=== PATIENT | female | born 1970 ===

== ENCOUNTER 2016-12-17 20:02 | Emergency (ER) | payer OTHER ==
--- NOTE | 2016-12-17 21:12 | ED ORDER SUMMARY ---
..... Patient: EILEEN LYONS OrderSheet [facility] VisitID: [id number] [address] [place] [place] [address] 46y, F Registration Date/Time: 12/17/2016 ORDER SHEET Weight: 89.8 kg (stated) Allergies: Latex, Sulfa Antibiotics GENERAL ORDERS: UA-Culture if indicated Urgent (20:25 12/17/2016 HSoule per protocol) (20:27 AMcQuoid ER Tech1) MEDICATION ORDERS: IV FLUIDS: ORDER SHEET NOTES: [Electronically signed by Christy Petty (22:28 12/17/2016)] [Electronically signed by Geno Urias PA-C (23:55 12/17/2016)] [Electronically locked/signed by Christy Petty (22:28 12/17/2016)]
--- NOTE | 2016-12-17 21:12 | ED CLINICAL REPORT ---
Clinical Report - Physicians/Mid Levels [facility] [address] [place] [address] 12/17/2016 20:03 Patient: EILEEN LYONS Time Seen: 20:30; initial patient contact. Arrived- By private vehicle. Historian- patient. HISTORY OF PRESENT ILLNESS Chief Complaint: DYSURIA. frequent urination. This started several days; pt with a history of diabetes prior to her lap banding, has increased urination and had a recent yeast infection as well, thinks she has a uti. had nausea and vomiting several times this week, has pain over her area of her lap banding. stool is normal. she admits to gaining 35lbs this past few years since her banding. The patient has had mild, intermittent abdominal pain. The pain is described as located in the upper abdomen. She has had mild, intermittent right-sided and left-sided flank pain. No pelvic pain, vaginal itching, genital lesions or pain with urination. The patient has had urinary frequency. She has had urgency of urination. Not sexually active. Similar symptoms previously: Many times. Recent medical care: Not recently seen/assessed. REVIEW OF SYSTEMS The patient has had mild nausea. She has had vomiting. All systems otherwise negative, except as recorded above. PAST HISTORY See nurses notes. Problems: Flank Pain. Prior Injury, Same Area. Vaginitis. Tension-Type Headache. Atypical Chest Pain. Lifestyle / Substance Problems. Hypothyroidism. Diabetes Mellitus. Medications: LORazepam Oral 0.5 mg, PRN. Naproxen Oral. Tramadol HCL Oral 50 mg, 2 tabs, 3x a day, shoulder px. Allergies: Latex. Sulfa Antibiotics. SOCIAL HISTORY No alcohol use or drug use. FAMILY HISTORY Negative. ADDITIONAL NOTES The nursing notes have been reviewed with agreement regarding the chief complaint, HPI, ROS, PMH and patient medications and allergies. PHYSICAL EXAM Vital Signs: 12/17/2016 20:10 BP: 137/85. HR: 76. RR: 18. O2 saturation: 100%. Temp: 97.9 F. Pain level now: 310. Have been reviewed. Appearance: Alert. Oriented X3. No acute distress. HEENT: Normal external inspection. ENT: Pharynx normal. Neck: Neck supple. CVS: Heart sounds normal. Respiratory: No respiratory distress. Breath sounds normal. Chest nontender. Abdomen: Soft and nontender. Bowel sounds normal. No organomegaly. No mass. (mild tenderness over her port from her lap banding). Back: No CVA tenderness. LABS, X-RAYS, AND EKG Laboratory Tests: UA-Culture if indicated: (ISABELA: 12/17/2016 20:15) ( MsgRcvd 12/17/2016 20:46) Final results Test Result Flag Units (Reference) URINE COLOR YELLOW URINE APPEARANCE CLEAR URINE GLUCOSE NEGATIVE (NEGATIVE) URINE BILIRUBIN NEGATIVE (NEGATIVE) URINE KETONE NEGATIVE (NEGATIVE) URINE SPECIFIC GRAVITY 1.025 (1.010-1.030) URINE PH 6.0 (5.0-8.0) URINE PROTEIN NEGATIVE (NEGATIVE) URINE UROBILINOGEN 0.2 EU/dL (0.2-1.0) URINE NITRITE NEGATIVE (NEGATIVE) URINE BLOOD TRACE-INTACT (NEGATIVE) URINE LEUK ESTERASE NEGATIVE (NEGATIVE) URINE RBC 0-1 rbc/hpf (0-1) URINE WBC 0-1 wbc/hpf (0-1) URINE EPITHELIAL CELLS 3-5 EPI/hpf (0-5) URINE BACTERIA FEW (1+) (NONE SEEN) URINE COMMENT CULT NOT INDICATED URINE CULTURES ARE SET-UP BASED ON THE FOLLOWING CRITERIA:POSITIVE NITRITEPOSITIVE LEUKOCYTE ESTERASEGREATER THAN 10 WHITE BLOOD CELLSMODERATE (2+) OR GREATER BACTERIA . PROGRESS AND PROCEDURES Course of Care: discussed further, she has been eating breads and has a history of lap banding, and previously this did cause her nausea and vomiting in the past, she states she is now also experiencing hot flashes and night sweats and otherwise feels fine, no sense of illness otherwise. she states she used to be a diabetic and that's why she had her lap banding and is on no medication other than naprosyn. Patient is stable. Symptoms better. Patient/family counseled. CLINICAL IMPRESSION Epigastric abdominal pain of undetermined cause. (you need to see your bariatric surgeon regarding your lap band). Acute cystitis with hematuria. menopausal sx likely with hot flashes and night sweats. INSTRUCTIONS No strenuous activity. Drink plenty of fluids. Take clear liquids only for the next 48 hours. Advance diet as tolerated (avoid all gluten and dairy for 30 days). (stop your nsaids, naproxyn. take your vitamin B12 sublingually as directed, clear liquids for 48 hours and advance as tolerated. see your pcp and possibly your bariatric surgeon for follow up lap band.). Warnings: Further evaluation is necessary in order to conduct further tests. It is very important to follow up with a physician. GENERAL WARNINGS: Return or contact your physician immediately if your condition worsens or changes unexpectedly, if not improving as expected, or if other problems arise. Your Current Medications: STOP TAKING THE FOLLOWING MEDICATIONS: Naproxen Oral. CONTINUE TAKING THE FOLLOWING MEDICATIONS: LORazepam Oral : 0.5 mg PRN. Tramadol HCL Oral : 50 mg, 2 tabs 3x a day, shoulder px. Prescription Medications: Zofran (orally disintegrating tablets) 4 mg: take 1 orally every 6 hours as needed for nausea. Dispense ten (10). No refill. Substitution is permissible. Cipro 500 mg: take 1 tab orally every 12 hours for 3 days. No refills. Substitution is permissible. Follow-up: Follow up with your doctor Monday if not better. Reason for referral: possible menopausal sx, and issue with lap band, needs an appointment. Follow up with a specialist bariatric surgeon if not better. Understanding of the discharge instructions verbalized by patient. (Electronically signed by Geno Urias PA-C 12/17/2016 23:55)
--- NOTE | 2016-12-17 21:12 | ED ORDER SUMMARY ---
..... Patient: EILEEN LYONS OrderSheet [facility] VisitID: [id number] [address] [place] [address] 46y, F Registration Date/Time: 12/17/2016 ORDER SHEET Weight: 89.8 kg (stated) Allergies: Latex, Sulfa Antibiotics GENERAL ORDERS: UA-Culture if indicated Urgent (20:25 12/17/2016 HSoule per protocol) (20:27 AMcQuoid ER Tech1) MEDICATION ORDERS: IV FLUIDS: ORDER SHEET NOTES: [Electronically signed by Christy Petty (22:28 12/17/2016)] [Electronically signed by Geno Urias PA-C (23:55 12/17/2016)] [Electronically locked/signed by Christy Petty (22:28 12/17/2016)]
--- NOTE | 2016-12-17 21:12 | ED NURSING NOTES ---
Clinical Report - Nurses [address] [place] [address] 12/17/2016 20:03 Patient: EILEEN LYONS TRIAGE Triage time 20:Dec 17 2016. Acuity: LEVEL 3. Chief Complaint: PAINFUL URINATION and FREQUENCY. SEPSIS SCREEN: Sepsis Screen: negative. Negative (no infection suspected/documented). JAYDON COMA SCORE: [place] Coma Scale: 15- eyes open spontaneously (4); best verbal response- oriented x 4 (5); best motor response- obeys commands (6). --20:17 Christy Petty 20:10 12/17/16. BP: 137/85. HR: 76. RR: 18. O2 saturation: 100% on room air. Temp: 97.9 F (oral). Pain level now: 10/07. --20:17 Christy Petty. Weight: 89.8 kg stated. Height/Length: 62 inches Per Patient. BMI: 36.2. --20:15 Christy Petty. Medications Tramadol HCL Oral 50 mg, 2 tabs, 3x a day, shoulder px. --20:14 Christy Petty Naproxen Oral. --20:14 Christy Petty LORazepam Oral 0.5 mg, PRN. --20:14 Christy Petty. Medication/allergy information source: the patient. --20:17 Christy Petty. Allergies Latex. Sulfa Antibiotics. --20:15 Christy Petty. History Arrived by private vehicle. Historian: patient. Accompanied by family. Primary physician ([facility]). Onset. (4 days). ( Patient reported she had a yeast infection over the last few days. She then began having burning and painful urination. She reports fever, chills and vomiting.). She has had flank pain. Treatment INSURANCE OFFICE MANAGER: None. PAST MEDICAL HX: Immunizations: up-to-date. The patient has had a hysterectomy. SOCIAL HX: Smoker- current status unknown (Vaporizer). Occasional alcohol use. No drug use. No infectious disease exposure. ABUSE ASSESSMENT: No report of abuse. FALL RISK ASSESSMENT: Fall risk assessment completed. No fall risk identified. NUTRITIONAL RISK ASSESSMENT: The nutritional risk assessment revealed no deficiencies. FUNCTIONAL ASSESSMENT: Functional assessment: no impairments noted. LEARNING NEEDS ASSESSMENT: The learning needs assessment revealed no barriers. SKIN INTEGRITY ASSESSMENT: Skin integrity risk assessment completed. No skin integrity risk identified. --20:17 Christy Petty. PROBLEMS: Flank Pain. Vaginitis. Tension-Type Headache. Chronic Headache. Atypical Chest Pain. Lifestyle / Substance Problems. Heart attack. Abdominal Pain. Headache. Gallstone(s). Peptic Ulcer Disease. Lower Extremity Pain. Bipolar Disorder. Hypothyroidism. Diabetes Mellitus. Immunizations. --20:16 Christy Petty. ADDITIONAL SURGERIES: Bladder Suspension. Cholecystectomy. Hysterectomy. Knee Surgery. Lap band surgery . Shoulder Surgery. --20:16 Christy Petty. Interventions ID band on patient. To treatment room. --20:17 Christy Petty. PHYSICAL ASSESSMENT Patient gowned. GENERAL / NEURO / PSYCH: Alert. Oriented X 4. Appears in no acute distress. RESPIRATORY: Respirations not labored. CVS: Normal heart rate and rhythm. GI / : Abdominal tenderness in the lower abdomen. SKIN: Skin is warm and dry. BACK: ( lower back pain). --20:17 Christy Petty. NURSING PROGRESS NOTES Monitoring of patient in place. Patient gowned. Warming measures: blanket applied. Reassurance given to the patient. Patient ID band checked for patient name and birthdate: patient confirmed. Instructions provided to collect clean catch urine and patient verbalized understanding. Clean catch urine collected with return of yellow-colored clear urine; sample sent to lab for urinalysis and culture. Specimen labeled in the presence of the patient. Two patient identifiers checked. Call light placed in reach. Side rails up x 1. Bed placed in lowest position. Brakes of bed on. Patient ready for evaluation- chart flagged and ED physician notified. --20:18 Christy Petty ( Finger stick glucose 100 mg/dl). --20:24 Christy Petty. DISPOSITION / DISCHARGE 21:20 12/17/16. Condition at departure: stable. The goals identified in the patient's plan of care were met. No learning barriers present. Discharge instructions provided and reviewed with the patient. Reviewed medication(s) side effects, precautions, dosing and course information. Prescription(s) given to the patient. Reviewed need for increased fluid intake. Patient verbalized understanding. Written instructions provided in [place]. ( Drink plenty of fluids. Follow up with your PCP on Monday. Increase your fluid intake and rest until you feel better. Return if symptoms worsen. Patient verbalized understanding of instructions and had no additional question at this time.). The patient was discharged by the physician assistant distribution manager. She was discharged home and accompanied by family. She left the Emergency Department ambulatory and via private vehicle. Family member driving. FALL RISK ASSESSMENT: Fall risk assessment completed. No fall risk identified. --22:28 Christy Petty 21:25 12/17/16. BP: 115/80. HR: 60. RR: 20. O2 saturation: 100% on room air. Temp: 98.1 F (oral). Pain level now: 0/10. --22:28 Christy Petty. Locked/Released at 12/17/2016 22:28 by Christy Petty,
--- NOTE | 2016-12-17 21:12 | ED NURSING NOTES ---
Clinical Report - Nurses [facility] [address] [place] [address] 12/17/2016 20:03 Patient: EILEEN LYONS TRIAGE Triage time 20:Dec 17 2016. Acuity: LEVEL 3. Chief Complaint: PAINFUL URINATION and FREQUENCY. SEPSIS SCREEN: Sepsis Screen: negative. Negative (no infection suspected/documented). JAYDON COMA SCORE: [place] Coma Scale: 15- eyes open spontaneously (4); best verbal response- oriented x 4 (5); best motor response- obeys commands (6). --20:17 Christy Petty 20:10 12/17/16. BP: 137/85. HR: 76. RR: 18. O2 saturation: 100% on room air. Temp: 97.9 F (oral). Pain level now: 10/07. --20:17 Christy Petty. Weight: 89.8 kg stated. Height/Length: 62 inches Per Patient. BMI: 36.2. --20:15 Christy Petty. Medications Tramadol HCL Oral 50 mg, 2 tabs, 3x a day, shoulder px. --20:14 Christy Petty Naproxen Oral. --20:14 Christy Petty LORazepam Oral 0.5 mg, PRN. --20:14 Christy Petty. Medication/allergy information source: the patient. --20:17 Christy Petty. Allergies Latex. Sulfa Antibiotics. --20:15 Christy Petty. History Arrived by private vehicle. Historian: patient. Accompanied by family. Primary physician ([facility]). Onset. (4 days). ( Patient reported she had a yeast infection over the last few days. She then began having burning and painful urination. She reports fever, chills and vomiting.). She has had flank pain. Treatment NET DEVELOPER WITH [facility]: None. PAST MEDICAL HX: Immunizations: up-to-date. The patient has had a hysterectomy. SOCIAL HX: Smoker- current status unknown (Vaporizer). Occasional alcohol use. No drug use. No infectious disease exposure. ABUSE ASSESSMENT: No report of abuse. FALL RISK ASSESSMENT: Fall risk assessment completed. No fall risk identified. NUTRITIONAL RISK ASSESSMENT: The nutritional risk assessment revealed no deficiencies. FUNCTIONAL ASSESSMENT: Functional assessment: no impairments noted. LEARNING NEEDS ASSESSMENT: The learning needs assessment revealed no barriers. SKIN INTEGRITY ASSESSMENT: Skin integrity risk assessment completed. No skin integrity risk identified. --20:17 Christy Petty. PROBLEMS: Flank Pain. Vaginitis. Tension-Type Headache. Chronic Headache. Atypical Chest Pain. Lifestyle / Substance Problems. Heart attack. Abdominal Pain. Headache. Gallstone(s). Peptic Ulcer Disease. Lower Extremity Pain. Bipolar Disorder. Hypothyroidism. Diabetes Mellitus. Immunizations. --20:16 Christy Petty. ADDITIONAL SURGERIES: Bladder Suspension. Cholecystectomy. Hysterectomy. Knee Surgery. Lap band surgery . Shoulder Surgery. --20:16 Christy Petty. Interventions ID band on patient. To treatment room. --20:17 Christy Petty. PHYSICAL ASSESSMENT Patient gowned. GENERAL / NEURO / PSYCH: Alert. Oriented X 4. Appears in no acute distress. RESPIRATORY: Respirations not labored. CVS: Normal heart rate and rhythm. GI / : Abdominal tenderness in the lower abdomen. SKIN: Skin is warm and dry. BACK: ( lower back pain). --20:17 Christy Petty. NURSING PROGRESS NOTES Monitoring of patient in place. Patient gowned. Warming measures: blanket applied. Reassurance given to the patient. Patient ID band checked for patient name and birthdate: patient confirmed. Instructions provided to collect clean catch urine and patient verbalized understanding. Clean catch urine collected with return of yellow-colored clear urine; sample sent to lab for urinalysis and culture. Specimen labeled in the presence of the patient. Two patient identifiers checked. Call light placed in reach. Side rails up x 1. Bed placed in lowest position. Brakes of bed on. Patient ready for evaluation- chart flagged and ED physician notified. --20:18 Christy Petty ( Finger stick glucose 100 mg/dl). --20:24 Christy Petty. DISPOSITION / DISCHARGE 21:20 12/17/16. Condition at departure: stable. The goals identified in the patient's plan of care were met. No learning barriers present. Discharge instructions provided and reviewed with the patient. Reviewed medication(s) side effects, precautions, dosing and course information. Prescription(s) given to the patient. Reviewed need for increased fluid intake. Patient verbalized understanding. Written instructions provided in [place]. ( Drink plenty of fluids. Follow up with your PCP on Monday. Increase your fluid intake and rest until you feel better. Return if symptoms worsen. Patient verbalized understanding of instructions and had no additional question at this time.). The patient was discharged by the physician assistant wrestling coach. She was discharged home and accompanied by family. She left the Emergency Department ambulatory and via private vehicle. Family member driving. FALL RISK ASSESSMENT: Fall risk assessment completed. No fall risk identified. --22:28 Christy Petty 21:25 12/17/16. BP: 115/80. HR: 60. RR: 20. O2 saturation: 100% on room air. Temp: 98.1 F (oral). Pain level now: 0/10. --22:28 Christy Petty. Locked/Released at 12/17/2016 22:28 by Christy Petty,
--- NOTE | 2016-12-17 23:55 | ED MAR SUMMARY ---
..... Medication Administration Record [facility] [address] [place], [place] [id number] Patient: EILEEN LYONS Visit ID: [id number] 46y, F Weight: 89.8 kg Height/Length: 62 in BMI: 36.2 ALLERGIES: Latex, Sulfa Antibiotics
--- NOTE | 2016-12-17 23:55 | ED DISCHARGE INSTRUCTIONS ---
Patient: EILEEN LYONS General Instructions [facility] VisitID: [id number] [address] [place] [address] 46y, F Registration Date/Time: 12/17/2016 Epigastric abdominal pain of undetermined cause. (you need to see your bariatric surgeon regarding your lap band). Acute cystitis with hematuria. menopausal sx likely with hot flashes and night sweats. INSTRUCTIONS No strenuous activity. Drink plenty of fluids. Take clear liquids only for the next 48 hours. Advance diet as tolerated (avoid all gluten and dairy for 30 days). (stop your nsaids, naproxyn. take your vitamin B12 sublingually as directed, clear liquids for 48 hours and advance as tolerated. see your pcp and possibly your bariatric surgeon for follow up lap band.). Warnings: Further evaluation is necessary in order to conduct further tests. It is very important to follow up with a physician. GENERAL WARNINGS: Return or contact your physician immediately if your condition worsens or changes unexpectedly, if not improving as expected, or if other problems arise. Your Current Medications: STOP TAKING THE FOLLOWING MEDICATIONS: Naproxen Oral. CONTINUE TAKING THE FOLLOWING MEDICATIONS: LORazepam Oral : 0.5 mg PRN. Tramadol HCL Oral : 50 mg, 2 tabs 3x a day, shoulder px. Prescription Medications: Zofran (orally disintegrating tablets) 4 mg: take 1 orally every 6 hours as needed for nausea. Dispense ten (10). No refill. Substitution is permissible. Cipro 500 mg: take 1 tab orally every 12 hours for 3 days. No refills. Substitution is permissible. Follow-up: Follow up with your doctor Monday if not better. Reason for referral: possible menopausal sx, and issue with lap band, needs an appointment. Follow up with a specialist bariatric surgeon if not better. Understanding of the discharge instructions verbalized by patient. No strenuous activity. (Electronically signed by Geno Urias PA-C 12/17/2016 23:55)
--- NOTE | 2016-12-17 23:55 | ED MED RECONCILIATION SUMMARY ---
Patient: EILEEN LYONS Medication Reconciliation Report [facility] VisitID: [id number] [address] [place] [address] 46y, F Registration Date/Time: 12/17/2016 Weight: 89.8 kg Height/Length: 62 in. BMI: 36.2 ALLERGIES: Latex, Sulfa Antibiotics The patient's Home Medications are listed below: STOP TAKING THE FOLLOWING MEDICATIONS: Naproxen Oral CONTINUE TAKING THE FOLLOWING MEDICATIONS: LORazepam Oral 0.5 mg, PRN Tramadol HCL Oral 50 mg, 2 tabs, 3x a day, shoulder px The source(s) of the original Home Medication information: patient The following Medications were given to the patient in the Emergency Department: None. The following Medications were prescribed to the patient: Zofran (orally disintegrating tablets) 4 mg: take 1 orally every 6 hours as needed for nausea. Dispense ten (10). No refill. Substitution is permissible. -- Geno Urias PA-C Cipro 500 mg: take 1 tab orally every 12 hours for 3 days. No refills. Substitution is permissible. -- Geno Urias PA-C
--- NOTE | 2016-12-17 23:55 | ED MAR SUMMARY ---
..... Medication Administration Record [facility] [address] [place], [place] [id number] Patient: EILEEN LYONS Visit ID: [id number] 46y, F Weight: 89.8 kg Height/Length: 62 in BMI: 36.2 ALLERGIES: Latex, Sulfa Antibiotics
--- NOTE | 2016-12-17 23:55 | ED DISCHARGE INSTRUCTIONS ---
Patient: EILEEN LYONS General Instructions [facility] VisitID: [id number] [address] [place] [place] [address] 46y, F Registration Date/Time: 12/17/2016 Epigastric abdominal pain of undetermined cause. (you need to see your bariatric surgeon regarding your lap band). Acute cystitis with hematuria. menopausal sx likely with hot flashes and night sweats. INSTRUCTIONS No strenuous activity. Drink plenty of fluids. Take clear liquids only for the next 48 hours. Advance diet as tolerated (avoid all gluten and dairy for 30 days). (stop your nsaids, naproxyn. take your vitamin B12 sublingually as directed, clear liquids for 48 hours and advance as tolerated. see your pcp and possibly your bariatric surgeon for follow up lap band.). Warnings: Further evaluation is necessary in order to conduct further tests. It is very important to follow up with a physician. GENERAL WARNINGS: Return or contact your physician immediately if your condition worsens or changes unexpectedly, if not improving as expected, or if other problems arise. Your Current Medications: STOP TAKING THE FOLLOWING MEDICATIONS: Naproxen Oral. CONTINUE TAKING THE FOLLOWING MEDICATIONS: LORazepam Oral : 0.5 mg PRN. Tramadol HCL Oral : 50 mg, 2 tabs 3x a day, shoulder px. Prescription Medications: Zofran (orally disintegrating tablets) 4 mg: take 1 orally every 6 hours as needed for nausea. Dispense ten (10). No refill. Substitution is permissible. Cipro 500 mg: take 1 tab orally every 12 hours for 3 days. No refills. Substitution is permissible. Follow-up: Follow up with your doctor Monday if not better. Reason for referral: possible menopausal sx, and issue with lap band, needs an appointment. Follow up with a specialist bariatric surgeon if not better. Understanding of the discharge instructions verbalized by patient. No strenuous activity. (Electronically signed by Geno Urias PA-C 12/17/2016 23:55)
--- NOTE | 2016-12-17 23:55 | ED MED RECONCILIATION SUMMARY ---
Patient: EILEEN LYONS Medication Reconciliation Report [facility] VisitID: [id number] [address] [place] [address] 46y, F Registration Date/Time: 12/17/2016 Weight: 89.8 kg Height/Length: 62 in. BMI: 36.2 ALLERGIES: Latex, Sulfa Antibiotics The patient's Home Medications are listed below: STOP TAKING THE FOLLOWING MEDICATIONS: Naproxen Oral CONTINUE TAKING THE FOLLOWING MEDICATIONS: LORazepam Oral 0.5 mg, PRN Tramadol HCL Oral 50 mg, 2 tabs, 3x a day, shoulder px The source(s) of the original Home Medication information: patient The following Medications were given to the patient in the Emergency Department: None. The following Medications were prescribed to the patient: Zofran (orally disintegrating tablets) 4 mg: take 1 orally every 6 hours as needed for nausea. Dispense ten (10). No refill. Substitution is permissible. -- Geno Urias PA-C Cipro 500 mg: take 1 tab orally every 12 hours for 3 days. No refills. Substitution is permissible. -- Geno Urias PA-C
== END 2016-12-17 21:20 | disposition home or self-care (01) ==
LOC: ED SRH 20:02
DX: R10.13 Epigastric pain (principal); N30.01 Acute cystitis with hematuria; N95.1 Menopausal and female climacteric states; R61 Generalized hyperhidrosis; E11.9 Type 2 diabetes mellitus without complications; E07.9 Disorder of thyroid, unspecified; Z98.84 Bariatric surgery status; Z79.891 Long term (current) use of opiate analgesic; Z79.899 Other long term (current) drug therapy; Z79.1 Long term (current) use of non-steroidal anti-inflammatories (NSAID)
CPT/HCPCS: 90004; 90098